=== PATIENT | male | born 1965 | race African-American/Black ===

== ENCOUNTER 2021-01-18 11:51 | Emergency (ER) | payer BC, OTHER ==
[~2021-01-18] VITALS: Ht 175.3 cm; Wt 79.5 kg
[2021-01-18 11:53] VITALS: BP 145/88
== END 2021-01-18 12:53 | disposition left against medical advice (07) ==
LOC: ER 12:00
DX: M54.2 Cervicalgia (principal); Z53.21 Procedure and treatment not carried out due to patient leaving prior to being seen by health care provider